=== PATIENT | male | born 1940 | race Caucasian/White ===

== ENCOUNTER 2023-02-28 12:56 | Outpatient (OUT) | payer MEDICARE, SELFPAY ==
--- NOTE | 2023-02-28 | XR_ITS ---
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 Mild flattening of the plantar arch. Narrowing of the lateral aspect of the ankle joints with irregularity of the articular surface of the talar dome suspicious for subchondral cysts. SOFT TISSUES:Soft tissue swelling surrounding the ankle. EFFUSION:None visible. OTHER: Negative. XR/XR foot LT min 3V IMPRESSION: 1. 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 Consider MRI for further evaluation. 2. Stable advanced degenerative changes versus posttraumatic changes of the hindfoot and midfoot. 3. No appreciable acute abnormality. Electronically authenticated by: TIARRA THORPE Date: 02/28/2023 15:31
--- NOTE | 2023-02-28 | XR_ITS ---
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 Mild flattening of the plantar arch. Narrowing of the lateral aspect of the ankle joints with irregularity of the articular surface of the talar dome suspicious for subchondral cysts. SOFT TISSUES:Soft tissue swelling surrounding the ankle. EFFUSION:None visible. OTHER: Negative. XR/XR ankle LT min 3V IMPRESSION: 1. 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 Consider MRI for further evaluation. 2. Stable advanced degenerative changes versus posttraumatic changes of the hindfoot and midfoot. 3. No appreciable acute abnormality. Electronically authenticated by: TIARRA THORPE Date: 02/28/2023 15:31
== END 2023-02-28 12:57 | disposition home or self-care (01) ==
LOC: RAD 12:56
PROVIDERS: Visit Provider Physician Assistant
DX: M25.572 Pain in left ankle and joints of left foot (principal)
CPT/HCPCS: 73610; 73630